=== PATIENT | male | born 1970 | race Caucasian/White ===

== ENCOUNTER 2018-03-26 16:11 | Observation (INO) ==
[2018-03-26] MEDS ORDERED: Aspirin 325 MG Tablet PO ONE (16:22)
--- NOTE | 2018-03-26 16:25 | ED ---
HPI General Chief Complaint: Chest Pain Stated Complaint: chest pain/lightheaded x2 wks Time Seen by Provider: 03/26/18 16:22 Source: patient Mode of arrival: ambulatory Limitations: no limitations History of Present Illness HPI narrative: 47-year-old male patient with history of hypertension, high triglycerides, recently was started on lisinopril week ago by his physicians at the [place], presents to the ER today because he has had intermittent chest discomfort about a week now and it became more consistent today, constant, pressure-like, 3 out of 10. He has not noticed any exacerbating or alleviating factors. He denies any shortness of breath, nausea, abdominal pains, or any other symptoms. Related Data Home Medications Medication Instructions Recorded Confirmed levothyroxine [Synthroid] 112 mcg PO DAILY 03/26/18 03/26/18 lisinopril 1 tab PO DAILY 03/26/18 03/26/18 testosterone [AndroGel] 1 packet TRANSDERMAL DAILY 03/26/18 03/26/18 Allergies Allergy/AdvReac Type Severity Reaction Status Date / Time No Known Allergies Allergy Verified 03/26/18 16:20 Review of Systems ROS: all other systems reviewed are negative [facility] Medical History Medical History Hypertension (Acute) Hypothyroid (Acute) Surgical History Surgical History H/O varicose vein stripping (Acute) Social History Social History Substance History: No History of Abuse Second Hand Smoke Exposure: No Smoking Status: Never smoker How Often Do You Have a Drink Containing Alcohol: 4 or more times a week Recent Travel in [facility] within the Last 8 Weeks: No Recent Out of Country Travel within the Last 8 Weeks: No Immunization History Tetanus Immunization: Unsure Exam Narrative Exam Narrative: GENERAL: Well-developed middle-age male patient currently and mild distress. Awake and oriented x3. SKIN: Focused skin assessment warm/dry. HEAD: Atraumatic. Normocephalic. EYES: Pupils equal and round. No scleral icterus. No injection or drainage. ENT: No nasal bleeding or discharge. Mucous membranes pink and moist. NECK: Trachea midline. No JVD. CARDIOVASCULAR: Regular rate and rhythm. No murmur appreciated. Pulses are present and equal bilaterally. RESPIRATORY: No accessory muscle use. Clear to auscultation. Breath sounds equal bilaterally. GASTROINTESTINAL: Abdomen soft, non-tender, nondistended. Hepatic and splenic margins not palpable. MUSCULOSKELETAL: No obvious deformities. No clubbing. No cyanosis. No edema. NEUROLOGICAL: Awake and alert. No obvious cranial nerve deficits. Motor grossly within normal limits. Normal speech. PSYCHIATRIC: Appropriate mood and affect; insight and judgment normal. Course Initial Documented Vital Signs Temperature 98 F 03/26/18 16:20 Pulse Rate 116 H 03/26/18 16:20 Respiratory Rate 18 03/26/18 16:20 Blood Pressure 203/103 H 03/26/18 16:20 Pulse Oximetry 98 03/26/18 16:20 Last Documented Vital Signs Temperature 98 F 03/26/18 16:20 Pulse Rate 91 H 03/26/18 16:35 Respiratory Rate 18 03/26/18 16:21 Blood Pressure 194/92 H 03/26/18 16:35 Pulse Oximetry 98 03/26/18 16:35 Medical Decision Making MDM Narrative Medical decision making narrative: EKG did not show significant ST changes. His heart rate came down on its own while in the ER and aspirin nitroglycerin had been given to the patient. On reevaluation at 5 PM his blood pressure is improved, at 180/99. Chest x-ray and cardiac enzymes are negative. At this point, considering patient's history, my plan would be to admit him for further evaluation and the chest pain center. Case is discussed with PA for Dr. Dsouza for admission. Medical Screen Exam Complete: Yes Emergency Medical Condition: Yes Differential Diagnosis Differential Diagnosis: ACS versus anxiety attack versus hypertensive urgency Lab Data Result diagrams: 03/26/18 16:20 03/26/18 16:20 Lab Results 03/26/18 03/26/18 Range/Units 16:20 16:20 CBC w Diff Auto diff final WBC 8.4 (4.0-11.0) th/mm3 RBC 4.90 (4.50-5.90) mil/mm3 Hgb 14.9 (13.0-17.0) gm/dL Hct 43.8 (39.0-51.0) % MCV 89.4 (80.0-100.0) fL MCH 30.5 (27.0-34.0) pg MCHC 34.1 (32.0-36.0) % RDW 12.2 (11.6-17.2) % Plt Count 218 (150-450) th/mm3 MPV 9.1 (7.0-11.0) fL Neut % (Auto) 62.4 (16.0-70.0) % Lymph % (Auto) 27.3 (9.0-44.0) % [place] % (Auto) 6.9 (0.0-8.0) % Eos % (Auto) 2.8 (0.0-4.0) % Baso % (Auto) 0.6 (0.0-2.0) % Neut # (Auto) 5.2 (1.8-7.7) th/mm3 Lymph # (Auto) 2.3 (1.0-4.8) th/mm3 [place] # (Auto) 0.6 (0.0-0.9) th/mm3 Eos # (Auto) 0.2 (0.0-0.4) th/mm3 Baso # (Auto) 0.1 (0.0-0.2) th/mm3 WBC Differential . Differential Comment . Sodium 138 (136-145) meq/L Potassium 3.1 L (3.5-5.1) meq/L Chloride 103 (98-107) meq/L Carbon Dioxide 28.7 (21.0-32.0) meq/L Anion Gap 6 (5-15) meq/L BUN 13 (7-18) mg/dL Creatinine 0.95 (0.60-1.30) mg/dL Estimated GFR 86 L (>89) mL/min Random Glucose 98 (74-106) mg/dL Calcium 8.2 L (8.5-10.1) mg/dL Total Bilirubin 0.4 (0.2-1.0) mg/dL AST 16 (15-37) U/L ALT 30 (12-78) U/L Alkaline Phosphatase 67 (45-117) U/L Troponin I Less than 0.02 L (0.02-0.05) ng/mL Total Protein 8.2 (6.4-8.2) g/dL Albumin 4.2 (3.4-5.0) g/dL Imaging Data Radiologist's impression: Chest X-Ray 03/26/18 16:22 CONCLUSION: Negative examination. ECG Data Attestation: I personally reviewed and interpreted this ECG as follows: Interpretation: EKG shows a sinus tachycardia at a rate of 115 bpm. No signs of acute ST elevations or depressions. Discharge Plan Discharge Disposition Patient Disposition: 30 Still Patient Discharge Condition Condition: Stable Discharge Details Anticipated Discharge Date: 03/26/18 Diagnosis: Chest pain Physicians Team ED Provider: Chrystal Mitchell Primary Care Provider: Primary Care DuraniJoann Rxs /Orders / Referrals /Forms Prescriptions: No Action lisinopril 20 mg Tablet 1 tab PO DAILY RF: 0 levothyroxine [Synthroid] 112 mcg Tablet 112 mcg PO DAILY RF: 0 testosterone [AndroGel] 1.62 % (20.25 mg/1.25 gram) Gel In Packet 1 packet TRANSDERMAL DAILY RF: 0 Discharge Instructions Patient Printed Instructions: Chest Pain (ED) Discharge Interventions Interventions: Vital Signs Last Done: 03/26/18 16:21 Status ED Status: With Doctor
[2018-03-26 16:47] LABS: Chloride 103 meq/L (98-107); Potassium 3.1 meq/L (3.5-5.1); Sodium 138 meq/L (136-145)
[2018-03-26 16:50] LABS: Calcium 8.2 mg/dL (8.5-10.1)
[2018-03-26 16:51] LABS: Albumin 4.2 g/dL (3.4-5.0); Anion Gap 6 meq/L (5-15); Blood Urea Nitrogen 13 mg/dL (7-18); Carbon Dioxide 28.7 meq/L (21.0-32.0); Glucose,Random 98 mg/dL (74-106)
--- NOTE | 2018-03-26 16:53 | XR ---
EXAM DATE: 03/26/2018 4:22 PM EDT AGE/SEX: 47 years / Male INDICATIONS: Chest pain. CLINICAL DATA: This is the patient's initial encounter. Patient reports that signs and symptoms have been present for 1 week and indicates a pain score of 3/10. MEDICAL/SURGICAL HISTORY: Hypertension. None. COMPARISON: No prior exams available for comparison. FINDINGS: A single AP view of the chest demonstrates the lungs to be symmetrically aerated without evidence of mass, infiltrate or effusion. The cardiomediastinal contours are unremarkable. Osseous structures a re intact. CONCLUSION: Negative examination. Electronically signed by: Dudley Zarate MD 03/26/2018 4:52 PM EDT
[2018-03-26 16:54] LABS: Alanine Aminotransferase 30 U/L (12-78); Aspartate Aminotransferase 16 U/L (15-37); Glomerular Filtration Rate 86 mL/min (>89)
[2018-03-26 16:56] LABS: Total Protein 8.2 g/dL (6.4-8.2)
[2018-03-26 16:57] LABS: Alkaline Phosphatase 67 U/L (45-117)
[2018-03-26 17:02] LABS: Baso # (Auto) 0.1 th/mm3 (0.0-0.2); Baso % (Auto) 0.6 % (0.0-2.0); Eos # (Auto) 0.2 th/mm3 (0.0-0.4); Eos % (Auto) 2.8 % (0.0-4.0); Hematocrit 43.8 % (39.0-51.0); Hemoglobin 14.9 gm/dL (13.0-17.0); Lymph # (Auto) 2.3 th/mm3 (1.0-4.8); Lymph % (Auto) 27.3 % (9.0-44.0); Mean Corpuscular HGB Conc 34.1 % (32.0-36.0); Mean Corpuscular Hemoglobin 30.5 pg (27.0-34.0); Mean Corpuscular Volume 89.4 fL (80.0-100.0); Mean Platelet Volume 9.1 fL (7.0-11.0); Mono # (Auto) 0.6 th/mm3 (0.0-0.9); Mono % (Auto) 6.9 % (0.0-8.0); Neut # (Auto) 5.2 th/mm3 (1.8-7.7); Neut % (Auto) 62.4 % (16.0-70.0); Platelet Count 218 th/mm3 (150-450); Red Cell Distribution Width 12.2 % (11.6-17.2); White Blood Count 8.4 th/mm3 (4.0-11.0)
[2018-03-26] MEDS ORDERED: Acetaminophen 500 MG Tablet PO PRN (17:23)
--- NOTE | 2018-03-26 17:41 | P.HP ---
History of Present Illness Primary Care Physician: No Primary Care Physician Chief Complaint: Chest pain History of Present Illness: This is a 47-year-old male patient with a known medical history of hypertension who presented to the ED from the [place] with chest pain and elevated blood pressure. Patient states that he has intermittent chest pain over the past 2 weeks. He states that he visited the [place] and was prescribed lisinopril 20 mg PO and has been taking it the past two weeks and presented here with BP systolic in the 200's. His chest pain is midsternal, radiates to left side, is dull in nature and "feels like someone is standing on his chest", pain comes and goes throughout the day mostly with activity. He denies any associated nausea, vomiting, sweating, or shortness of breath with the pain. Family history significant for cardiovascular disease and hypertension. Patient does that his lipids have been high but he has not been taking his medications for this. Denies any tobacco abuse. Does not follow with a paster operator. - Diagnosis (1) Chest pain Review of Systems All other systems reviewed negative except as stated in HPI PMFSH - History History Provided By: Patient - Medical History Medical History: Medical History (Last Reviewed 03/26/18 @ 17:38 by Rere Rose) Hypertension Hypothyroid - Surgical History Surgical History: Surgical History (Last Reviewed 03/26/18 @ 17:38 by Rere Rose) H/O varicose vein stripping - Family History Family History: Family History (Last Updated 03/26/18 @ 18:10 by Rere Rose) Father Hypertension - Social History I have reviewed the patient's Social History: Yes - Tobacco History Second Hand Smoke Exposure: No Smoking Status: Never smoker - Alcohol History How Often Do You Have a Drink Containing Alcohol: 4 or more times a week - Substance Use History Substance History: No History of Abuse - Travel History Recent Travel in the [place] Within the Last 8 Weeks: No Recent Travel Out of the Country Within the Last 8 Weeks: No - Immunization History Tetanus Immunization: Unsure Medications and Allergies Active Medications: Active Medications Acetaminophen (Tylenol) 500 mg PO Q4H PRN PRN Reason: HEADACHE Levothyroxine Sodium (Synthroid) 112 mcg PO DAILY YAMILETH Lisinopril (Prinivil) 20 mg PO DAILY YAMILETH Nitroglycerin (Nitrostat Sl) 0.4 mg SL Q5M PRN PRN Reason: CHEST PAIN Ondansetron HCl (Zofran Inj) 4 mg IV.PUSH Q6H PRN PRN Reason: NAUSEA Sodium Chloride (Ns Flush) 2 ml IV.FLUSH UNSCH PRN PRN Reason: FLUSH AFTER USING IV ACCESS Sodium Chloride (Ns Flush) 2 ml IV.FLUSH BID YAMILETH Sodium Chloride (Ns Flush) 2 ml IV.FLUSH PRN PRN PRN Reason: FLUSH AFTER USING IV ACCESS Allergies Allergy/AdvReac Type Severity Reaction Status Date / Time No Known Allergies Allergy Verified 03/26/18 16:20 Home Medications Medication Instructions Recorded Confirmed Type levothyroxine [Synthroid] 112 mcg PO DAILY 03/26/18 03/26/18 History lisinopril 1 tab PO DAILY 03/26/18 03/26/18 History testosterone [AndroGel] 1 packet TRANSDERMAL DAILY 03/26/18 03/26/18 History Exam Vital signs: Vital Signs 03/26/18 16:20 03/26/18 16:21 03/26/18 16:30 Temperature 98 F Pulse Rate 116 H 90 110 H Respiratory Rate 18 18 Blood Pressure 203/103 H 184/99 H Pulse Oximetry 98 98 03/26/18 16:31 03/26/18 16:35 03/26/18 17:25 Temperature Pulse Rate 91 H 80 Respiratory Rate 18 Blood Pressure 194/92 H 151/82 H Pulse Oximetry 100 98 98 Intake & Output 03/25/18 03/26/18 03/26/18 18:59 06:59 18:59 Weight 92 kg Narrative: GENERAL: Well-developed, well-nourished patient in [facility]. SKIN: Warm and dry. No rash. HEAD: Normocephalic. Atraumatic. EYES: Pupils equal and round. No scleral icterus. No injection or drainage. ENT: No nasal bleeding or discharge. Mucous membranes pink and moist. NECK: Supple. Trachea midline. CARDIOVASCULAR: Regular rate and rhythm. S1, S2 noted. No murmur appreciated. No chest pain to palpation. RESPIRATORY: No accessory muscle use. Clear to auscultation. Breath sounds equal bilaterally. GASTROINTESTINAL: Abdomen soft, non-tender, nondistended. Normoactive bowel sounds x4. MUSCULOSKELETAL: No obvious deformities. Extremities without clubbing, cyanosis , or edema. NEUROLOGICAL: Awake and alert. No obvious cranial nerve deficits. Motor grossly within normal limits. 5/5 muscle strength in bilateral upper and lower extremities. Normal speech. PSYCHIATRIC: Appropriate mood and affect; insight and judgment normal. Results - Labs CBC & Chem 7: 03/26/18 16:20 03/26/18 16:20 Labs: Laboratory Results - last 24 hr 03/26/18 03/26/18 16:20 16:20 CBC w Diff Auto diff final WBC 8.4 RBC 4.90 Hgb 14.9 Hct 43.8 MCV 89.4 MCH 30.5 MCHC 34.1 RDW 12.2 Plt Count 218 MPV 9.1 Neut % (Auto) 62.4 Lymph % (Auto) 27.3 [place] % (Auto) 6.9 Eos % (Auto) 2.8 Baso % (Auto) 0.6 Neut # (Auto) 5.2 Lymph # (Auto) 2.3 [place] # (Auto) 0.6 Eos # (Auto) 0.2 Baso # (Auto) 0.1 WBC Differential . Differential Comment . Sodium 138 Potassium 3.1 L Chloride 103 Carbon Dioxide 28.7 Anion Gap 6 BUN 13 Creatinine 0.95 Estimated GFR 86 L Random Glucose 98 Calcium 8.2 L Total Bilirubin 0.4 AST 16 ALT 30 Alkaline Phosphatase 67 Troponin I Less than 0.02 L Total Protein 8.2 Albumin 4.2 - Imaging Impressions Chest X-Ray 03/26/18 16:22 CONCLUSION: Negative examination. Caprini VTE Risk Assessment Caprini VTE Risk Assessment: No/Low Risk (score <= 1) Caprini Risk Assessment Model: Point Value = 1 Point Value = 2 Point Value = 3 Point Value = 5 Age 41-60 Minor surgery BMI > 25 kg/m2 Swollen legs Varicose veins or History of unexplained or recurrent spontaneous Oral contraceptives or hormone replacement Sepsis (< 1 month) Serious lung disease, including pneumonia (< 1 month) Abnormal pulmonary function Acute myocardial infarction Congestive heart failure (< 1 month) History of inflammatory bowel disease Medical patient at bed rest Age 61-74 Arthroscopic surgery Major open surgery (> 45 min) Laparoscopic surgery (> 45 min) Malignancy Confined to bed (> 72 hours) Immobilizing plaster cast Central venous access Age >= 75 History of VTE Family history of VTE Factor V Leiden Prothrombin [id number] Lupus anticoagulant Anticardiolipin antibodies Elevated serum homocysteine Heparin-induced thrombocytopenia Other congenital or acquired thrombophilia Stroke (< 1 month) Elective arthroplasty Hip, pelvis, or leg fracture Acute spinal cord injury (< 1 month) Prophylaxis Regimen: Total Risk Factor Score Risk Level Prophylaxis Regimen 0-1 Low Early ambulation 2 Moderate Order ONE of the following: *Sequential Compression Device (SCD) *Heparin 5000 units SQ BID 3-4 Higher Order ONE of the following medications: *Heparin 5000 units SQ TID *Enoxaparin/Lovenox 40 mg SQ daily (WT < 150 kg, CrCl > 30 mL/min) *Enoxaparin/Lovenox 30 mg SQ daily (WT < 150 kg, CrCl > 10-29 mL/min) *Enoxaparin/Lovenox 30 mg SQ BID (WT < 150 kg, CrCl > 30 mL/min) AND/OR *Sequential Compression Device (SCD) 5 or more Highest Order ONE of the following medications: *Heparin 5000 units SQ TID (Preferred with Epidurals) *Enoxaparin/Lovenox 40 mg SQ daily (WT < 150 kg, CrCl > 30 mL/min) *Enoxaparin/Lovenox 30 mg SQ daily (WT < 150 kg, CrCl > 10-29 mL/min) *Enoxaparin/Lovenox 30 mg SQ BID (WT < 150 kg, CrCl > 30 mL/min) AND *Sequential Compression Device (SCD) Assessment and Plan - Assessment (1) Chest pain Code(s): R07.9 - Chest pain, unspecified Status: Acute - Plan This is a 47-year-old male patient with: Chest pain -Patient has been admitted to the chest pain center for observation. Serial EKGs and serial troponins have been ordered for ruling out ACS purposes. I-nitial troponin flat. Await following enzymes and follow trend. EKG reviewed , controlled heart rate with no ST changes to indicate any ischemia. -Patient was given aspirin and nitroglycerin in ED. Nitroglycerin available as needed for chest pain. -Continue on cardiac telemetry, monitor for any arrhythmias. -Chest x-ray reviewed, no acute cardiopulmonary disease noted. -Lipids added to labs. -If ACS ruled out, patient will likely undergo cardiac treadmill stress test to further rule out any ischemia. -Further hospitalization treatment plan will depend on treadmill results and clinical improvement. -Patient stable at this time and agreeable to plan. Hypertension, acute on chronic: Patient presented with systolic in the 200s. Is currently now 180/90. Will continue home lisinopril at 10 mg PO daily and add HCTZ. Monitor blood pressure trends. Clonidine available as needed per parameters. History of triglyceridemia: Does not take his previously prescribed medications. Will check lipids and possible need to start statin. DVT prophylaxis: SCDs. Ambulation.
[2018-03-26 20:02] LABS: Creatine Kinase 116 U/L (39-308)
[2018-03-26 22:40] LABS: Creatine Kinase 104 U/L (39-308)
[2018-03-27] MEDS ORDERED: Levothyroxine 112 MCG Tablet PO SCH (06:00)
[2018-03-27 07:47] LABS: Potassium 3.6 meq/L (3.5-5.1)
[2018-03-27 07:51] LABS: Calcium 7.6 mg/dL (8.5-10.1)
[2018-03-27 07:52] LABS: Carbon Dioxide 27.2 meq/L (21.0-32.0)
[2018-03-27 08:05] VITALS: O2SAT 98
[2018-03-27] MEDS ORDERED: Lisinopril 20 MG Tablet PO SCH (09:00)
[2018-03-27 09:15] VITALS: BP 124/83; RESP 20; TEMP 96.6
--- NOTE | 2018-03-27 09:16 | P.PNIM ---
Subjective Interval history: Follow up chest pain. Patient seen and examined, lying in bed comfortably in [facility]. Patient to undergo a cardiac treadmill stress test today. No further chest pain. No reports of any acute events overnight. VSS. Physical Exam Vital signs: Vital Signs 03/26/18 16:20 03/26/18 16:21 03/26/18 16:30 Temperature 98 F Pulse Rate 116 H 90 110 H Respiratory Rate 18 18 Blood Pressure 203/103 H 184/99 H Pulse Oximetry 98 98 03/26/18 16:31 03/26/18 16:35 03/26/18 17:25 Temperature Pulse Rate 91 H 80 Respiratory Rate 18 Blood Pressure 194/92 H 151/82 H Pulse Oximetry 100 98 98 03/26/18 18:34 03/26/18 20:00 03/27/18 00:00 Temperature 97.1 F L 97.4 F L Pulse Rate 88 80 90 Respiratory Rate 18 18 18 Blood Pressure 116/69 122/66 123/70 Pulse Oximetry 95 90 L 03/27/18 04:00 03/27/18 08:05 Temperature 97.2 F L Pulse Rate 80 Respiratory Rate 18 Blood Pressure 115/66 Pulse Oximetry 95 98 Intake & Output 03/26/18 03/27/18 03/27/18 18:59 06:59 18:59 Weight 92 kg 92 kg Other: # Voids 2 Date of Last Bowel Movement 03/26/18 Narrative: GENERAL: Well-developed, well-nourished patient in [facility]. SKIN: Warm and dry. No rash. HEAD: Normocephalic. Atraumatic. EYES: Pupils equal and round. No scleral icterus. No injection or drainage. ENT: No nasal bleeding or discharge. Mucous membranes pink and moist. NECK: Supple. Trachea midline. CARDIOVASCULAR: Regular rate and rhythm. S1, S2 noted. No murmur appreciated. No chest pain to palpation. RESPIRATORY: No accessory muscle use. Clear to auscultation. Breath sounds equal bilaterally. GASTROINTESTINAL: Abdomen soft, non-tender, nondistended. Normoactive bowel sounds x4. MUSCULOSKELETAL: No obvious deformities. Extremities without clubbing, cyanosis , or edema. NEUROLOGICAL: Awake and alert. No obvious cranial nerve deficits. Motor grossly within normal limits. 5/5 muscle strength in bilateral upper and lower extremities. Normal speech. PSYCHIATRIC: Appropriate mood and affect; insight and judgment normal. Results - Labs CBC & Chem 7: 03/26/18 16:20 03/27/18 07:10 Laboratory Results - last 24 hr 03/26/18 03/26/18 03/26/18 16:20 16:20 19:30 CBC w Diff Auto diff final WBC 8.4 RBC 4.90 Hgb 14.9 Hct 43.8 MCV 89.4 MCH 30.5 MCHC 34.1 RDW 12.2 Plt Count 218 MPV 9.1 Neut % (Auto) 62.4 Lymph % (Auto) 27.3 [place] % (Auto) 6.9 Eos % (Auto) 2.8 Baso % (Auto) 0.6 Neut # (Auto) 5.2 Lymph # (Auto) 2.3 [place] # (Auto) 0.6 Eos # (Auto) 0.2 Baso # (Auto) 0.1 WBC Differential . Differential Comment . Sodium 138 Potassium 3.1 L Chloride 103 Carbon Dioxide 28.7 Anion Gap 6 BUN 13 Creatinine 0.95 Estimated GFR 86 L Random Glucose 98 Calcium 8.2 L Total Bilirubin 0.4 AST 16 ALT 30 Alkaline Phosphatase 67 Total Creatine Kinase 116 Troponin I Less than 0.02 L Less than 0.02 L Total Protein 8.2 Albumin 4.2 03/26/18 03/27/18 22:10 07:10 CBC w Diff WBC RBC Hgb Hct MCV MCH MCHC RDW Plt Count MPV Neut % (Auto) Lymph % (Auto) [place] % (Auto) Eos % (Auto) Baso % (Auto) Neut # (Auto) Lymph # (Auto) [place] # (Auto) Eos # (Auto) Baso # (Auto) WBC Differential Differential Comment Sodium 142 Potassium 3.6 Chloride 108 H Carbon Dioxide 27.2 Anion Gap 7 BUN 14 Creatinine 0.99 Estimated GFR 82 L Random Glucose 93 Calcium 7.6 L Total Bilirubin AST ALT Alkaline Phosphatase Total Creatine Kinase 104 Troponin I Less than 0.02 L Total Protein Albumin - Imaging Impressions Chest X-Ray 03/26/18 16:22 CONCLUSION: Negative examination. Assessment and Plan - Assessment (1) Chest pain Code(s): R07.9 - Chest pain, unspecified Status: Inactive - Plan This is a 47-year-old male patient with: Chest pain -Patient has been admitted to the chest pain center for observation. Serial EKGs and serial troponins have been ordered for ruling out ACS purposes. -Troponins flat. EKG reviewed, controlled heart rate with no ST changes to indicate any ischemia. -Patient was given aspirin and nitroglycerin in ED. Nitroglycerin available as needed for chest pain. -Continue on cardiac telemetry, monitor for any arrhythmias. -Chest x-ray reviewed, no acute cardiopulmonary disease noted. -Lipids added to labs. Pending. -ACS ruled out, patient will undergo cardiac treadmill stress test this morning to further rule out any ischemia. -Further hospitalization treatment plan will depend on treadmill results and clinical improvement. -Patient stable at this time and agreeable to plan. Hypertension, acute on chronic: Patient presented with systolic in the 200s. Is now WNL. Will continue home lisinopril at 10 mg PO daily and add HCTZ. Monitor blood pressure trends. Clonidine available as needed per parameters. History of triglyceridemia: Does not take his previously prescribed medications. Will check lipids and possible need to start statin. DVT prophylaxis: SCDs. Ambulation. Discharge Planning: Await treadmill results.
[2018-03-27 10:04] VITALS: PULSE 85
[2018-03-27 11:09] LABS: Chol/HDL Ratio 5.59 Ratio; HDL Cholesterol 34.5 mg/dL (40.0-60.0)
--- NOTE | 2018-03-27 13:14 | TR ---
Date Performed: 03/27/2018 Time Performed: 09:28:31 DOCTOR: Tristian Law DRUG LIST: CLINICAL HISTORY: CHEST PAIN REASON FOR TEST: Chest pain REASON FOR ENDING: OBSERVATION: CONCLUSION: Leonard protocol completed test stopped 2/2 reaching target heart rate. No reproducibl e chest discomfort. Good BP response. Excellent exercise tolerance. [address] depression is noted in the inferior leads and J point depression with up sloping segments is noted laterally. Maximum HR =157 Target HR [id number]=829.0% Maximum BQ=750/82 Total Exercise Time=7:05 [place] test suggestive . Needs follow up evaluation. COMMENTS:
--- NOTE | 2018-03-28 07:51 | ECG ---
Date Performed: 03/26/2018 Time Performed: 16:17:57 PTAGE: 47 years EKG: SINUS TACHYCARDIA INCOMPLETE RIGHT BUNDLE BRANCH BLOCK ABNORMAL RHYTHM ECG NO PREVIOUS TRACING DOCTOR: Дмитрий Alvares Interpretating Date/Time 03/28/2018 07:50:18
--- NOTE | 2018-03-28 08:00 | ECG ---
Date Performed: 03/26/2018 Time Performed: 22:03:33 PTAGE: 47 years EKG: Sinus rhythm POSSIBLE RIGHT VENTRICULAR CONDUCTION DELAY BORDERLINE ECG Since PREVIOUS TRACING , no significant change noted PREVIOUS TRACIN03/26/2018 19.29 DOCTOR: Дмитрий Alvares Interpretating Date/Time 03/28/2018 07:58:46
--- NOTE | 2018-03-28 08:17 | ECG ---
Date Performed: 03/26/2018 Time Performed: 19:29:56 PTAGE: 47 years EKG: Sinus rhythm POSSIBLE RIGHT VENTRICULAR CONDUCTION DELAY BORDERLINE ECG Compared to PREVIOUS TRACING sinus rate is slower PREVIOUS TRACIN03/26/2018 16.17 DOCTOR: Дмитрий Alvares Interpretating Date/Time 03/28/2018 08:16:31
[2018-03-28] MEDS ORDERED: Lisinopril 5 MG Tablet PO SCH (09:00)
== END 2018-03-27 11:27 | disposition home or self-care (01) ==
LOC: PHED 16:11 → PHEDA 16:11 → PH3 18:36
PROVIDERS: ADMIT Internal Medicine; ATTEND Internal Medicine